=== PATIENT | male | born 1975 | race African-American/Black ===

== ENCOUNTER 2017-01-09 09:45 | Emergency (ER) | payer MEDICAID ==
[~2017-01-09] VITALS: Ht 172.7 cm; Wt 108.2 kg
[~2017-01-09 09:45] MED LIST: CEPHALEXIN500 M1 PO; MEDROL 4MG DOSPA4 MG PO
[2017-01-09 09:49] VITALS: BP 139/78; PULSE 92; TEMP 98
== END 2017-01-09 10:43 | disposition home or self-care (01) ==
LOC: COL.ER 09:45
DX: M71.9 Bursopathy, unspecified (principal); J45.909 Unspecified asthma, uncomplicated

== ENCOUNTER 2017-09-18 12:42 | Emergency (ER) | payer MEDICAID ==
[~2017-09-18] VITALS: Ht 172.7 cm; Wt 106.8 kg
[2017-09-18 12:44] VITALS: BP 181/108; TEMP 98
[2017-09-18 14:17] LABS: BASO % 0.3 % (0.0-2.0); EOS # 0.1 (0.0-0.7); EOS % 0.7 % (0-4.0); GRAN # 7.4 (1.4-6.5); GRAN % 77.7 % (42.2-75.2); HEMATOCRIT 47.9 % (42.0-52.0); HEMOGLOBIN 14.8 g/dl (13.5-18.0); LYMPH # 1.5 (1.2-3.4); LYMPH % 15.7 % (20.0-51.0); MEAN CELL VOLUME 74 fl (80.0-100.0); MEAN CORPUSCULAR HEMOGLOBIN 23 pg (27.0-31.0); MEAN CORPUSCULAR HGB CONC 31 g/dl (33.0-37.0); MEAN PLATELET VOLUME 11.8 fl (7.4-10.4); MONO # 0.5 (0.1-0.6); MONO % 5.2 % (1.7-9.3); PLATELET COUNT 176 K/mm3 (130-400); RED BLOOD COUNT 6.47 M/mm3 (4.20-5.60); REDCELL DISTRIBUTION WIDTH-CV 17.2 % (11.5-14.5)
[2017-09-18 14:32] LABS: ALANINE AMINOTRANSFERASE 40 U/L (21-72); ALBUMIN 4.1 gm/dL (3.5-5.0); ALKALINE PHOSPHATASE 60 U/L (50-136); ANION GAP 10 mmol/L (7-16); AST,SGOT 31 U/L (15-37); BILIRUBIN,TOTAL 0.5 mg/dL (0.0-1.0); BLOOD UREA NITROGEN 14 mg/dL (9-20); CALCIUM 9.4 mg/dL (8.4-10.2); CARBON DIOXIDE 25 mmol/L (22-30); CHLORIDE 106 mmol/L (98-107); CREATININE, serum 0.86 mg/dL (0.66-1.25); GLUCOSE 149 mg/dL (74-106); LIPASE 83 U/L (23-300); POTASSIUM 4.6 mmol/L (3.4-5.0); SODIUM 141 mmol/L (137-145); TOTAL PROTEIN 7.8 gm/dL (6.4-8.2)
[2017-09-18 14:35] LABS: C-REACTIVE PROTEIN < 0.5 mg/dL (0.0-0.9)
[2017-09-18] MEDS ORDERED: ZOFRAN ODT4 MG PO (16:41)
[2017-09-18 16:56] VITALS: PULSE 80
== END 2017-09-18 16:56 | disposition home or self-care (01) ==
LOC: COL.ER 12:42
PROVIDERS: Nurse Practitioner
DX: R19.7 Diarrhea, unspecified (principal); R11.2 Nausea with vomiting, unspecified; J45.909 Unspecified asthma, uncomplicated; F17.210 Nicotine dependence, cigarettes, uncomplicated
CPT/HCPCS: J2405; J7030

== ENCOUNTER 2020-12-21 10:48 | Emergency (ER) | payer MEDICAID ==
[~2020-12-21] VITALS: Ht 172.7 cm; Wt 118.2 kg
[~2020-12-21 10:48] MED LIST changes: +ZOFRAN ODT4 MG PO
[2020-12-21] MEDS ORDERED: PREDNISONE20 MG PO (11:57)
[2020-12-21 12:15] VITALS: BP 134/64; PULSE 68; TEMP 97.8
== END 2020-12-21 12:20 | disposition home or self-care (01) ==
LOC: COL.ER 10:48
DX: L25.9 Unspecified contact dermatitis, unspecified cause (principal); F17.200 Nicotine dependence, unspecified, uncomplicated

== ENCOUNTER 2021-03-21 13:00 | Emergency (ER) | payer MEDICAID ==
[~2021-03-21] VITALS: Ht 172.7 cm; Wt 118.2 kg
[~2021-03-21 13:00] MED LIST changes: +PREDNISONE20 MG PO
[2021-03-21 14:28] VITALS: BP 121/67; PULSE 68; TEMP 97.9
== END 2021-03-21 14:28 | disposition home or self-care (01) ==
LOC: COL.ER 13:00
DX: L91.0 Hypertrophic scar (principal); J45.909 Unspecified asthma, uncomplicated; Z79.899 Other long term (current) drug therapy